=== PATIENT | male | born 1960 | race Caucasian/White ===

== ENCOUNTER → 2017-02-23 | Day surgery (SDC) | payer OTHER ==
[2017-02-16 11:31] VITALS: Ht 176.5 cm; Wt 148.2 kg
[~2017-02-23] VITALS: Ht 176.5 cm; Wt 148.2 kg
[~2017-02-23] MED LIST: AMLO-110 PO; ESMOLOL HCL 10 MG/ML 10 ML VIAL ONE; FENTANYL CITRATE INJ 50 MCG/1 ML 2 ML VIAL ONE; LABETALOL HCL IV 5 MG/ML 20ML IV ONE; LIDOCAINE HCL 2% 2 ML VIAL (20MG/ML) ONE; LOSA1TAB38 PO; NALOXONE HCL 0.4 MG/1 ML VIAL/CARP ONE; PROPOFOL IV EMULSION 10 MG/ML 20 ML VIAL IV ONE; SODIUM CHLORIDE 0.9% 500ML 500 ML IV ONE
[2017-02-23 08:57] VITALS: TEMP 36.6
--- NOTE | 2017-02-23 09:35 | Endo History and Physical ---
History & Physical Date of Service: Feb 23, 2017. Chief Complaint: SCREENING Referring Physician: DR RAINEY History of Present Illness Average risk colorectal cancer screening Past Surgical History Hx Cardiac Surgery: No Hx Internal Defibrillator: No Hx Pacemaker: No Hx Abdominal Surgery: No Hx of Implantable Prosthesis: No Hx Post-Op Nausea and Vomiting: No Hx Cancer Surgery: Yes (SKIN EXCISION) Hx Thoracic Surgery: No Hx Orthopedic: No Hx Urinary Tract Surgery: No Family History None Social History Smoking Status: Never Smoker Hx Substance Use: No Hx Alcohol Use: Yes (OCCASIONALLY) Allergies Coded Allergies: NO KNOWN DRUG ALLERGIES (Verified Allergy, Unknown, ., 02/23/17) Current Medications Reported Home Medications Medications Dose Route/Sig Max Daily Dose Days Date Category Norvasc (Amlodipine Besylate) 5 Mg Tab 5 Mg PO QPM 02/16/17 Reported Cozaar (Losartan Potassium) 100 Mg Tab 100 Mg PO QPM 02/16/17 Reported Vital Signs Weight (Kilograms): 148.18 Height (Feet): 5 Height (Inches): 9.5 Date Time Temp Pulse Resp B/P (MAP) Pulse Ox O2 Delivery O2 Flow Rate FiO2 02/23/17 08:57 36.6 84 18 153/103 (120) 95 Room Air Physical Exam General Appearance: WD/WN, no apparent distress, + obese Respiratory/Chest: Auscultation: breath sounds normal, no wheezing Cardiovascular: Heart Auscultation: RRR, no murmurs Assessment and Plan Colonoscopy today.
--- NOTE | 2017-02-23 10:00 | Discharge Instructions ---
Endoscopy Patient Instructions Date / Procedure(s) Performed Feb 23, 2017. Colonoscopy Allergy Information Coded Allergies: NO KNOWN DRUG ALLERGIES (Verified Allergy, Unknown, ., 02/23/17) Discharge Date / Findings Feb 23, 2017. Small polyp transverse colon removed Medication Instructions Restart Stopped Medication(s): Restart all medications today Provider Instructions Activity Restrictions - No exercising or heavy lifting for 24 hours. - Do not drink alcohol the day of the procedure. - Do not drive a car or operate machinery until the day after the procedure. - Do not make any important decisions or sign important papers in 24 hours after the procedure. Following Day: - Return to full activity which may include returning to work/school. Diet Start your diet with liquids and light foods (jello, soup, juice, toast). Then eat your usual diet if not nauseated. Treatment For Common After Affects For mild abdominal pain, bloating, or excessive gas: - Rest - Eat lightly - Lie on right side Follow-Up Information Follow-up with DR RAINEY as scheduled Anesthesia Information What You Should Know You have had a procedure that required some medicine to reduce anxiety and discomfort. This treatment is called moderate sedation. After receiving the treatment, you may be sleepy, but you will be able to breathe on your own. The effects of the treatment may last for several hours. Follow these instructions along with Activity/Diet recommendations noted above: * Do NOT do anything where dizziness or clumsiness would be dangerous. * Rest quietly at home today, then you can be up and about tomorrow. * Have a responsible person stay with you the rest of today. * You may have had an I.V. today. If so, you may take the dressing off later today. Recommendations Call your doctor if: * Trouble breathing * Continuous vomiting for more than 24 hours * Temperature above 101 degrees * Severe abdominal pain or bloating * Pain not relieved by pain medicine ordered * There is increased drainage or redness from any incision * A large amount of rectal bleeding greater than 2-3 tablespoons. (If you had a polyp/s removed or have hemorrhoids, a small amount of blood - from the rectum is to be expected.) * You have any unanswered questions or concerns. IN THE EVENT OF A SERIOUS EMERGENCY, GO TO THE NEAREST EMERGENCY ROOM Your discharge instructions were prepared by provider Jorge Maguire. Patient Instructions Signature Page Charles Vergara Patient (or Guardian) Signature/Date: I have read and understand the instructions given to me by my caregivers. Caregiver/RN/Doctor Signature/Date: The above-named patient and/or guardian has received patient instructions on this date. + Original Patient Signature Page (only) stays with chart. Please make copy for patient.
--- NOTE | 2017-02-23 10:07 | GI REPORT ---
Procedure Date: 02/23/2017 9:35 AM Procedure: Colonoscopy Indications: Screening for colorectal malignant neoplasm Medicines: Monitored Anesthesia Care Complications: No immediate complications. Estimated blood loss: None. Estimated Blood Loss: Estimated blood loss: none. Procedure: Pre-Anesthesia Assessment: - Prior to the procedure, a History and Physical was performed, and patient medications, allergies and sensitivities were reviewed. The patient's tolerance of previous anesthesia was reviewed. - ASA Grade Assessment: III - A patient with severe systemic disease. After I obtained informed consent, the scope was passed under direct vision. Throughout the procedure, the patient's blood pressure, pulse, and oxygen saturations were monitored continuously. The scope was introduced through the anus and advanced to the terminal ileum, with identification of the appendiceal orifice and IC valve. The colonoscopy was performed with ease. The patient tolerated the procedure well. The quality of the bowel preparation was excellent. The bowel preparation used was split dose MIralax. Findings: A 3 mm polyp was found in the distal transverse colon. The polyp was sessile. The polyp was removed with a cold snare. Resection and retrieval were complete. To prevent bleeding after the polypectomy, one hemostatic clip was successfully placed (MR conditional). Prominent venous pattern througout the colon. Verification of patient identification for the specimen was done by the physician and nurse using the patient's name, date and medical record number. Impression: - One 3 mm polyp in the distal transverse colon, removed with a cold snare. Resected and retrieved. Clip (MR conditional) was placed. - The colon was otherwise normal to the terminal ileum with retroflexed views of the ascending colon and rectum. Recommendation: - Repeat colonoscopy in 5-10 years for surveillance based on pathology results. - Discharge patient to home (with escort). Jorge Maguire M.D. Jorge Maguire MD 02/23/2017 10:06:45 AM This report has been signed electronically. Note Initiated On: 02/23/2017 9:35 AM I attest to the content of the Intraoperative Record and orders documented therein, exceptions below
--- NOTE | 2017-02-23 11:42 | DIAGNOSTIC IMAGING REPORT ---
SINGLE VIEW CHEST CLINICAL HISTORY: Hypoxia. FINDINGS: 2 AP, portable, upright chest radiographs are obtained. No prior studies are available for comparison at the time of dictation. The examination is degraded by portable technique, large body habitus, and patient rotation. The heart is top normal for projection. The pulmonary vasculature is noncongested. Bibasilar atelectasis is observed. No airspace consolidation or large pleural effusion is identified. No pneumothorax is seen. The bony thorax is grossly intact. IMPRESSION: No acute cardiopulmonary abnormality. Electronically signed by: Maninder Payne M.D. 02/23/2017 11:40 AM Dictated Date/Time: 02/23/2017 11:40 AM
[2017-02-23 12:10] VITALS: BP 144/104; PULSE 86; O2SAT 92
--- NOTE | 2017-02-23 12:35 | Anesthesiology Progress Note ---
Anesthesia Post Op Note Date & Time Feb 23, 2017 at 12:19 Vital Signs Pain Intensity: 0 Vital Signs Past 12 Hours Date Time Temp Pulse Resp B/P (MAP) Pulse Ox O2 Delivery O2 Flow Rate FiO2 02/23/17 12:10 86 20 144/104 (117) 92 Nasal Cannula 2 02/23/17 11:58 85 20 130/102 (111) 92 Room Air 02/23/17 11:47 82 20 120/89 (99) 93 Room Air 02/23/17 11:24 84 20 136/92 (107) 89 Room Air 02/23/17 11:13 81 20 150/98 (115) 91 Room Air 02/23/17 11:05 79 20 140/104 (116) 90 Room Air 02/23/17 10:53 82 20 142/100 (114) 93 Room Air 02/23/17 10:46 82 20 141/110 (120) 94 Nasal Cannula 2 02/23/17 10:40 82 20 143/99 (114) 93 Nasal Cannula 2 02/23/17 10:32 83 20 124/85 (98) 94 Nasal Cannula 4 02/23/17 10:27 85 20 149/96 (113) 94 Non-Rebreather 5 02/23/17 10:22 88 20 189/108 (135) 97 Non-Rebreather 15 132/105 (114) 02/23/17 08:57 36.6 84 18 153/103 (120) 95 Room Air Notes Mental Status: alert / awake / arousable, participated in evaluation Pt Amnestic to Procedure: Yes Nausea / Vomiting: adequately controlled Pain: adequately controlled Airway Patency, RR, SpO2: stable & adequate, see Notes BP & HR: stable & adequate Hydration State: stable & adequate Anesthetic Complications: no major complications apparent The patient is a 56 y/o male who underwent a screening colonoscopy. The patient has a PMH of HTN and morbid obesity. He likely has undiagnosed sleep apnea as he has a large neck circumference. He is scheduled for a sleep study next week. I was called into the room by the [facility] near the end of the procedure because the patient had airway obstruction and was desaturating. His SpO2 was in the 60s. The patient had an oral airway and nasal airway in place with a face mask on for oxygenation. He was receiving jaw thrust and was noted to be spontaneously ventilating. The patient's pupils appeared pinpoint so he was given naloxone IV. The patient's SpO2 gradually improved to the 90s and the patient responded to commands. He was also hypertensive and tachycardic so he was treated with beta blockers. The patient was monitored in recovery. His SpO2 was in the 90s on oxygen. When he was taken off the oxygen his SpO2 would fluctuate between the 80s and 90s on room air. The patient's lungs were clear to both me and Dr. Funk on auscultation. A CXR was obtained that showed NAD. The patient was given an incentive spirometer and was able to maintain his SpO2 in room air in the 90s. Dr. Trinidad and Raya Knight from the hospitalist service came to evaluate the patient and thought that the patient was okay to go home. I spoke to the patient and his that the patient likely has sleep apnea and should go to his appointment next week. They are to return to the hospital or call an ambulance if the patient develops any chest pain, shortness of breath, or any other concerning symptom to which they agreed.
--- NOTE | 2017-02-23 13:54 | Medical Consult ---
Consultation Date of Consultation: Feb 23, 2017. Attending Physician: Jorge Maguire M.D. Reason for Consultation: Hypoxia History of Present Illness Patient and examined with Dr. Trinidad 56 year old male who presented today for a routine screening colonoscopy. Post procedure patient was noted to be hypoxic which improved with oxygen supplementation. Of note, patient is obese and is scheduled for an outpatient sleep study next week. Patient denies chest pain and shortness of breath. No cough or sputum production. Reports he is feeling well. No lightheadedness or dizziness. He had some intermittent nausea which has resolved. No abdominal pain. He denies recent illnesses, fever, and chills. At the time of our exam, patient was initially on 4L oxygen via NC however we were able to successfully wean him to room air by the end of our exam. Past Medical/Surgical History Medical Problems: (1) HTN (hypertension) Status: Chronic Family History FH: prostate cancer FATHER Social History Smoking Status: Never Smoker Alcohol Use: occasionally Allergies Coded Allergies: NO KNOWN DRUG ALLERGIES (Verified Allergy, Unknown, ., 02/23/17) Home Medications Norvasc (Amlodipine Besylate) 5 Mg Tab 5 Mg PO QPM Cozaar (Losartan Potassium) 100 Mg Tab 100 Mg PO QPM Current Inpatient Medications Current Inpatient Medications Medications (Trade) Dose Ordered Sig/Vera Route Start Time Stop Time Status Last Admin Dose Admin Sodium Chloride 500 ml @ 15 mls/hr Q24H ONCE IV 02/23/17 09:35 02/24/17 09:34 Review of Systems ROS per HPI, all other systems reviewed and negative Physical Exam Date Time Temp Pulse Resp B/P (MAP) Pulse Ox O2 Delivery O2 Flow Rate FiO2 02/23/17 12:10 86 20 144/104 (117) 92 Nasal Cannula 2 02/23/17 11:58 85 20 130/102 (111) 92 Room Air 02/23/17 11:47 82 20 120/89 (99) 93 Room Air 02/23/17 11:24 84 20 136/92 (107) 89 Room Air 02/23/17 11:13 81 20 150/98 (115) 91 Room Air 02/23/17 11:05 79 20 140/104 (116) 90 Room Air 02/23/17 10:53 82 20 142/100 (114) 93 Room Air 02/23/17 10:46 82 20 141/110 (120) 94 Nasal Cannula 2 02/23/17 10:40 82 20 143/99 (114) 93 Nasal Cannula 2 02/23/17 10:32 83 20 124/85 (98) 94 Nasal Cannula 4 02/23/17 10:27 85 20 149/96 (113) 94 Non-Rebreather 5 02/23/17 10:22 88 20 189/108 (135) 97 Non-Rebreather 15 132/105 (114) 02/23/17 08:57 36.6 84 18 153/103 (120) 95 Room Air please refer to Dr. Trinidad's addendum for physical exam General Appearance: no apparent distress, + obese ENT: hearing grossly normal Respiratory/Chest: lungs clear, normal breath sounds, no respiratory distress, no accessory muscle use Cardiovascular: regular rate, rhythm, no edema, no murmur Extremities/Musculoskelatal: normal inspection, no calf tenderness, normal capillary refill, no pedal edema, normal range of motion Neurologic/Psych: no motor/sensory deficits, alert, normal mood/affect Skin: normal color Assessment & Plan 56 year old male who presented for planned outpatient screening colonoscopy today. Post procedure patient was experiencing hypoxia. Of note, patient is obese and is scheduled for an outpatient sleep study next week. Suspect hypoxia is chronic for the patient given his body habitus and sleep apnea symptoms. Patient denies chest pain and shortness of breath. CXR is without acute findings. During our exam, patient was successfully weaned to room air. It was deemed that the patient is stable for discharge to home. He was advised to keep his appointment for his sleep study next week. He can continue his other medications as prescribed. ADDENDUM: This is a 56 year old male who was here for a planned outpatient screening colonoscopy. Noted to have minimal hypoxia after the procedure. With no oxygen, patient was dropping into the mid 80s O2 sat. To note: he has been seen by the sleep lab - scheduled for outpatient sleep study next week (, March 02) He has no symptoms at this time. Denies hx. of asthma, COPD, or tobacco history Weaned him off of the O2 and his O2 saturations remained >90 during my exam. Okay for d/c home. Outpatient sleep study for sleep apnea.
== END | disposition home or self-care (01) ==
LOC: C.GI 08:40
PROVIDERS: ATTEND Internal Medicine Gastroenterology
DX: Z12.11 Encounter for screening for malignant neoplasm of colon (principal); D12.3 Benign neoplasm of transverse colon; I10 Essential (primary) hypertension; E78.5 Hyperlipidemia, unspecified; G47.33 Obstructive sleep apnea (adult) (pediatric); E66.9 Obesity, unspecified; Z68.42 Body mass index [BMI] 45.0-49.9, adult; Z79.899 Other long term (current) drug therapy